=== PATIENT | male | born 1980 | race Caucasian/White ===

== ENCOUNTER 2019-04-10 23:54 | Emergency (ER) | payer OTHER ==
[~2019-04-10] VITALS: Ht 177.8 cm; Wt 90.7 kg
[~2019-04-10 23:54] MED LIST: Cleocin HCl300 MG PO; Norco 5-325 Ta1 EACH PO
[2019-04-11] MEDS ORDERED: CYCL10 PO (01:46)
[2019-04-11] MEDS ORDERED: IBUP800 PO (01:46)
== END 2019-04-11 02:06 | disposition home or self-care (01) ==
LOC: ER 23:54
DX: S39.012A Strain of muscle, fascia and tendon of lower back, initial encounter (principal); F17.200 Nicotine dependence, unspecified, uncomplicated; Z88.0 Allergy status to penicillin; X58.XXXA Exposure to other specified factors, initial encounter
CPT/HCPCS: 72100; 99283-25; A9270

== ENCOUNTER 2019-04-12 23:38 | Emergency (ER) | payer OTHER ==
[~2019-04-12] VITALS: Ht 177.8 cm; Wt 103.9 kg
[~2019-04-12 23:38] MED LIST changes: +CYCL10 PO; +IBUP800 PO
[2019-04-13 00:50] LABS: Source, Urine Voided
[2019-04-13 00:53] LABS: Bilirubin, Urine Neg (Neg); Blood, Urine Neg (Neg); Glucose Qualitative, Urine Neg (Neg); Ketones, Urine Neg (Neg); Leukocyte Esterase, Urine Neg (Neg); Nitrite, Urine Neg (Neg); Protein, Urine Neg (Neg); Urobilinogen, Urine NORM (Normal)
[2019-04-13 00:54] LABS: BASOPHILS ABSOLUTE AUTO 0.02 K/mm3 (0.00-0.23); BASOPHILS PERCENT AUTO 0 % (0-2); EOSINOPHILS ABSOLUTE AUTO 0.02 K/mm3 (0.00-0.68); EOSINOPHILS PERCENT AUTO 0 % (0-6); Hemoglobin 16.5 g/dL (13.5-17.5); IMMATURE GRAN ABSOLUTE AUTO 0.03 K/mm3 (0.00-0.10); IMMATURE GRAN PERCENT AUTO 0 % (0-1); LYMPHOCYTES ABSOLUTE AUTO 0.68 K/mm3 (0.84-5.20); LYMPHOCYTES PERCENT AUTO 6 % (21-46); MONOCYTES ABSOLUTE AUTO 0.35 K/mm3 (0.16-1.47); MONOCYTES PERCENT AUTO 3 % (4-13); Mean Corpuscular HGB 30.5 pg (26.0-34.0); Mean Corpuscular HGB Conc 33.7 g/dL (31.5-36.5); Mean Corpuscular Volume 91 fL (80-100); Mean Platelet Volume 9.2 fL (9.1-12.4); NEUTROPHILS ABSOLUTE AUTO 10.24 K/mm3 (1.96-9.15); NEUTROPHILS PERCENT AUTO 90 % (41-73); Platelet Count 294 K/mm3 (150-400); RDW Coefficient Variation 12.4 % (11.7-14.2); RDW Standard Deviation 40.9 fL (35.1-46.3); Red Blood Cell Count 5.41 M/mm3 (4.30-5.90); White Blood Cell Count 11.34 K/mm3 (4.00-11.30)
[2019-04-13 00:55] LABS: Appearance, Urine Clear (Clear); Color, Urine Yellow (P-Yellow)
[2019-04-13 01:11] LABS: Alanine Aminotransfer (ALT/SGP 35 U/L (12-78); Albumin, Blood 3.5 g/dL (3.4-5.0); Albumin/Globulin Ratio 0.8 (0.8-1.8); Alk Phos 103 U/L (50-136); Anion Gap 8 mmol/L (6-16); Aspartate Aminotrans (AST/SGOT 18 U/L (12-37); Bilirubin, Total 0.6 mg/dL (0.1-1.0); Blood Urea Nitrogen 11 mg/dL (8-24); Bun/Creatinine Ratio 15.4 (12.0-20.0); CO2, Blood 24 mmol/L (21-32); Calcium, Blood 8.8 mg/dL (8.5-10.1); Chloride, Blood 106 mmol/L (98-108); Creatinine, Blood 0.72 mg/dL (0.60-1.20); Globulin, Blood 4.2 g/dL (2.2-4.0); Glomerular Filtration Rate >60 (60-); Glucose, Blood 111 mg/dL (70-99); Potassium, Blood 3.8 mmol/L (3.5-5.5); Sodium, Blood 138 mmol/L (136-145); Total Protein, Blood 7.7 g/dL (6.4-8.2)
[2019-04-13] MEDS ORDERED: IBUP600 PO (03:28)
[2019-04-13] MEDS ORDERED: LIDO700A20 TOP (03:28)
[2019-04-13] MEDS ORDERED: CYCL10 PO (03:28)
== END 2019-04-13 04:11 | disposition home or self-care (01) ==
LOC: ER 23:38
PROVIDERS: Emergency Medicine
DX: M54.5 Low back pain (principal); F17.200 Nicotine dependence, unspecified, uncomplicated; Z88.0 Allergy status to penicillin
CPT/HCPCS: 36415; 74176; 80053; 81003; 85025; 96372; 99284; J1170; J1885

== ENCOUNTER 2022-10-24 22:23 | Observation (INO) | payer SELFPAY ==
[~2022-10-24] VITALS: Ht 177.8 cm; Wt 116.6 kg
[~2022-10-24 22:23] MED LIST changes: +IBUP600 PO; +LIDO700A20 TOP
[2022-10-25 01:37] LABS: Bun/Creatinine Ratio 15.1 (12.0-20.0); Calcium, Blood 9.2 mg/dL (8.5-10.1); Creatinine, Blood 0.66 mg/dL (0.60-1.20); Potassium, Blood 3.8 mmol/L (3.5-5.5)
[2022-10-25 01:40] LABS: BASOPHILS ABSOLUTE AUTO 0.03 K/mm3 (0.00-0.23); BASOPHILS PERCENT AUTO 0 % (0-2); EOSINOPHILS PERCENT AUTO 0 % (0-6); Hemoglobin 16.5 g/dL (13.5-17.5); IMMATURE GRAN ABSOLUTE AUTO 0.04 K/mm3 (0.00-0.10); IMMATURE GRAN PERCENT AUTO 0 % (0-1); LYMPHOCYTES ABSOLUTE AUTO 0.65 K/mm3 (0.84-5.20); LYMPHOCYTES PERCENT AUTO 6 % (21-46); MONOCYTES ABSOLUTE AUTO 0.15 K/mm3 (0.16-1.47); MONOCYTES PERCENT AUTO 1 % (4-13); Mean Corpuscular HGB 31.4 pg (26.0-34.0); Mean Corpuscular HGB Conc 34.4 g/dL (31.5-36.5); Mean Corpuscular Volume 91 fL (80-100); Mean Platelet Volume 9.6 fL (9.1-12.4); NEUTROPHILS ABSOLUTE AUTO 9.84 K/mm3 (1.96-9.15); NEUTROPHILS PERCENT AUTO 92 % (41-73); Platelet Count 296 K/mm3 (150-400); RDW Coefficient Variation 12.8 % (11.7-14.2); RDW Standard Deviation 42.4 fL (35.1-46.3); Red Blood Cell Count 5.26 M/mm3 (4.30-5.90); White Blood Cell Count 10.71 K/mm3 (4.00-11.30)
[2022-10-25 04:11] VITALS: BP 143/88
--- NOTE | 2022-10-25 04:13 | NUR ---
ADMISSION REPORT RECEIVED FROM ER NURSE. PATIENT ARRIVES TO PCU 05, AMBULATED FROM HALLWAY INTO ROOM. SIGNIFICANT OTHER ACCOMPANYING PATIENT. PATIENT ALERT AND ORIENTED x4. VITALS STABLE, PATIENT ON RA WITH O2 SAT >95%, DENIES SOB OR FEELINGS OF THROAT SWELLING. TELE READING SINUS RHYTHM 70s. UPPER AND LOWER LIPS ARE SWOLLEN BUT PATIENT ABLE TO CONVERSE AND ANSWER QUESTIONS APPROPRIATLEY. NO SIGNS OF AIRWAY COMPRIMISE AT THIS TIME. PATIENT ORIENTED TO ROOM AND CALL LIGHT SYSTEM. DENIES ANY IGNITION SOURCES, PATIENT EDUCATED AND VERBALIZED UNDERSTANDING. SIGNIFICANT OTHER PROVIDED WITH RECLINER. NO OTHER NEEDS NOTED AT THIS TIME.
--- NOTE | 2022-10-25 06:14 | NUR ---
SHIFT SUMMARY NO CHANGES SINCE ADMISSION NOTE. SEE PREVIOUS NOTE FOR UPDATES. VITALS STABLE, PATIENT REMAINS ON RA WITH O2 SAT >90%. SIGNIFICANT OTHER AT BEDSIDE. WILL REPOTR TO DAY SHIFT RN. PATIENT EDUCATED ON IGNITION RISK. PATIENT DENIES ANY SOURCES OF IGNITION AND VERBALIZED UNDERSTANDING. WILL CONTINUE TO MONITOR FOR INCREASED RISK.
[2022-10-25 06:48] LABS: BASOPHILS ABSOLUTE AUTO 0.01 K/mm3 (0.00-0.23); BASOPHILS PERCENT AUTO 0 % (0-2); EOSINOPHILS ABSOLUTE AUTO 0.01 K/mm3 (0.00-0.68); EOSINOPHILS PERCENT AUTO 0 % (0-6); Hematocrit 46.9 % (37.0-53.0); Hemoglobin 16.3 g/dL (13.5-17.5); IMMATURE GRAN ABSOLUTE AUTO 0.03 K/mm3 (0.00-0.10); IMMATURE GRAN PERCENT AUTO 0 % (0-1); LYMPHOCYTES ABSOLUTE AUTO 0.74 K/mm3 (0.84-5.20); LYMPHOCYTES PERCENT AUTO 9 % (21-46); MONOCYTES ABSOLUTE AUTO 0.05 K/mm3 (0.16-1.47); MONOCYTES PERCENT AUTO 1 % (4-13); Mean Corpuscular HGB 31.3 pg (26.0-34.0); Mean Corpuscular HGB Conc 34.8 g/dL (31.5-36.5); Mean Corpuscular Volume 90 fL (80-100); Mean Platelet Volume 9.2 fL (9.1-12.4); NEUTROPHILS ABSOLUTE AUTO 7.65 K/mm3 (1.96-9.15); NEUTROPHILS PERCENT AUTO 90 % (41-73); Platelet Count 282 K/mm3 (150-400); RDW Coefficient Variation 12.7 % (11.7-14.2); RDW Standard Deviation 41.6 fL (35.1-46.3); White Blood Cell Count 8.49 K/mm3 (4.00-11.30)
[2022-10-25 07:28] LABS: Alanine Aminotransfer (ALT/SGP 65 U/L (12-78); Albumin, Blood 3.4 g/dL (3.4-5.0); Albumin/Globulin Ratio 0.8 (0.8-1.8); Alk Phos 83 U/L (50-136); Anion Gap 8 mmol/L (6-16); Aspartate Aminotrans (AST/SGOT 42 U/L (12-37); Bilirubin, Direct <0.1 mg/dL (0.0-0.3); Bilirubin, Indirect Unable to Calculate mg/dL (0.1-0.7); Bilirubin, Total 0.6 mg/dL (0.1-1.0); Blood Urea Nitrogen 10 mg/dL (8-24); CO2, Blood 24 mmol/L (21-32); Chloride, Blood 104 mmol/L (98-108); Creatinine, Blood 0.62 mg/dL (0.60-1.20); Globulin, Blood 4.1 g/dL (2.2-4.0); Glomerular Filtration Rate 122 (60-); Glucose, Blood 189 mg/dL (70-99); Potassium, Blood 3.7 mmol/L (3.5-5.5); Sodium, Blood 136 mmol/L (136-145); Total Protein, Blood 7.5 g/dL (6.4-8.2)
[2022-10-25 07:43] VITALS: BP 148/94
--- NOTE | 2022-10-25 11:12 | NUR ---
AM NOTE: PATIENT ALERT AND ORIENTED X4. DENIES NUMBNESS/TINGLING. UP IND TO BATHROOM. PERRLA. UPPER AND LOWER LIP SWELLING STABLE. PATIENT FEELS SWELLING HAS GONE DOWN SINCE LAST NIGHT. LUNGS SOUNDING CLEAR. DENIES SOB/COUGH. AIRWAY PATENT. DR. GUERRA AND DR. SCHAFFER IN THIS AM TO ASSESS. ON ROOM AIR SATING ABOVE 95% TELE SHOWING SR WITH HR 70-80'S. BP STABLE. DENIES CHEST PAIN/PRESSURE/PALPITATIONS. BOWEL TONES PRESENT. SOFT MECH DIET ORDERS IN PLACE. PATIENT TOLERATING WELL. UP IND TO BATHROOM. DENIES ABDOMINAL PAIN/NAUSEA. SIG OTHER AT BEDSIDE AND UPDATED ON PLAN OF CARE.
[2022-10-25 11:46] VITALS: BP 135/93
[2022-10-25] MEDS ORDERED: FAMO20 PO (14:39)
[2022-10-25] MEDS ORDERED: DIPH50 PO (14:39)
[2022-10-25] MEDS ORDERED: EPIPEN0.3 MG/0.3 IM (14:46)
--- NOTE | 2022-10-25 15:56 | NUR ---
DISCHARGE: NO ACUTE CHANGES. LIP SWELLING DECREASED AND ALMOST BACK TO BASELINE. DR. GUERRA AND DR. BAH IN TO DISCUSS DISCHARGE WITH PATIENT. NEW MEDICATIONS DISCUSSED WELL EMERGENCY EPI PEN. MEDICATIONS FAXED TO [facility]. PATIENT EDUCATED ON SIGNS AND SYMPTOMS OF WHEN TO RETURN OR CALL FOR HELP. PATIENT ADVISED TO FOLLOW UP AND ESTABLISH PRIMARY CARE. TG REFFERAL PLACED. IV REMOVED WNL. AT BEDSIDE FOR DISCHARGE. PATIENT LEFT UNIT WITH DISCHARGE PACKET AND ALL PERSONAL BELONGINGS.
== END 2022-10-25 15:37 | disposition home or self-care (01) ==
LOC: ER 22:23 → PCU 22:24
PROVIDERS: Emergency Medicine; ADMIT Internal Medicine
DX: T78.3XXA Angioneurotic edema, initial encounter (principal); Z88.0 Allergy status to penicillin; F17.210 Nicotine dependence, cigarettes, uncomplicated
CPT/HCPCS: 36415; 80048; 80053; 82248; 85025; 96374; 96375; 96376; 99285-25; G0378; J1100; J1200; J2930

== ENCOUNTER 2023-04-24 22:27 | Emergency (ER) | payer SELFPAY ==
[~2023-04-24] VITALS: Ht 172.7 cm; Wt 113.4 kg
[~2023-04-24 22:27] MED LIST changes: +DIPH50 PO; +EPIPEN0.3 MG/0.3 IM; +FAMO20 PO
[2023-04-25] MEDS ORDERED: ZYRTEC10 M2 PO (05:23)
[2023-04-25] MEDS ORDERED: Benadryl Itch28.3 G1 TOP (05:26)
[2023-04-25 05:54] VITALS: BP 152/90
== END 2023-04-25 05:54 | disposition home or self-care (01) ==
LOC: ER 22:27
DX: K13.0 Diseases of lips (principal); F17.210 Nicotine dependence, cigarettes, uncomplicated; Z88.0 Allergy status to penicillin; Z79.899 Other long term (current) drug therapy
CPT/HCPCS: 93005; 93010; 96372; 96374; 96375; 96376; 99284-25; A9270; J0171; J1200; J1720